=== PATIENT | female | born 2000 | race Caucasian/White ===

== ENCOUNTER → 2021-10-29 | Day surgery (SDC) | payer OTHER ==
[~2021-10-29] VITALS: Ht 172.7 cm; Wt 62.1 kg
[~2021-10-29] MED LIST: ACETAMINOPHEN500 M1 PO; LAMICTAL100 MG PO; METFORMIN HCL500 MG PO; MOTRIN600 MG PO; NORCO 5-325 TA1 EACH PO; OXY-IR 5MG5 MG PO; PROZAC40 MG PO; SYNTHROID25 MCG PO
[2021-10-29 07:26] LABS: HCG (URINE) SCREEN NEGATIVE (NEGATIVE)
[2021-10-29 07:33] LABS: BILIRUBIN - TOTAL 1.5 mg/dL (0.2-1.0); BUN/CREAT RATIO (CALC) 14.7 RATIO; CREATININE 0.68 mg/dL (0.51-0.95); GLOBULIN (CALCULATION) 2.9 g/dL; POTASSIUM 3.7 mmol/L (3.5-5.1); TOTAL PROTEIN 6.9 g/dL (6.4-8.2)
== END | disposition home or self-care (01) ==
LOC: FAS 06:21
PROVIDERS: Student in an Organized Health Care Education/Training Program
DX: K80.10 Calculus of gallbladder with chronic cholecystitis without obstruction (principal); E03.9 Hypothyroidism, unspecified; Z88.1 Allergy status to other antibiotic agents; Z88.0 Allergy status to penicillin
CPT/HCPCS: 36415; 74300; 80053; 82150; 83690; 84703; J1100; J1170; J1885; J2250; J2405; J2704; J2710; J3010; J7120; Q9967